=== PATIENT | male | born 1955 | race Caucasian/White ===

== ENCOUNTER 2020-06-04 06:18 | Day surgery (SDC) | payer OTHER ==
[2020-06-03 12:23] LABS: Absolute Lymphocytes (CBC) 2.5 K/uL (0.7-4.9); Basophils % 0.4 % (0-1.3); Hematocrit 48.3 % (39.6-49.0); Lymphocytes % 32.3 % (15.3-44.8); MPV 8.5 fL (7.6-11.3); RBC Red Blood Cell Count 5.25 M/uL (4.33-5.43)
[2020-06-03 12:37] LABS: Protime INR 1.1
--- NOTE | 2020-06-03 12:57 | RAD REPORT ---
EXAM DESCRIPTION: RAD - Chest Pa And Lat (2 Views) - 06/03/2020 12:24 pm CLINICAL HISTORY: pre op Chest pain. COMPARISON: CHEST SINGLE VIEW dated 11/18/2013; CHEST SINGLE VIEW dated 11/11/2009 FINDINGS: The lungs are clear. The heart is normal in size. No displaced fractures. IMPRESSION: No acute or concerning finding suspected.
[2020-06-03 13:22] LABS: Potassium 2.7 mmol/L (3.5-5.1)
[2020-06-03 13:37] LABS: Blood Morphology Comment NOT SEEN (NOT SEEN); Platelet Estimate ADEQ
[2020-06-04] MEDS ORDERED: LIDOCAINE 1% MPF 30 ML VIAL ONE (06:50)
[2020-06-04] MEDS ORDERED: HEPA 1000U/500MLS 1,000 UNIT/500 ML BAG IV ONE (06:50)
[2020-06-04] MEDS ORDERED: NA CHLORIDE 0.9% 500 ML ONE (06:56)
[2020-06-04] MEDS ORDERED: ATROPINE SULF 1 MG/10 ML SYR IV ONE (07:22)
[2020-06-04] MEDS ORDERED: MIDAZOLAM HCL 2 MG/2 ML INJ ONE ×3 (07:22→07:43)
[2020-06-04] MEDS ORDERED: FENTANYL CITR 100 MCG/2 ML ONE (07:22)
[2020-06-04] MEDS ORDERED: NA CHLORIDE 0.9% 0 ML ONE (07:23)
[2020-06-04] MEDS ORDERED: POTASSIUM CL SA 10 MEQ TAB PO ONE (09:00)
[2020-06-04 09:33] VITALS: BP 116/75; TEMP 97.8; O2SAT 96
--- NOTE | 2020-06-04 13:29 | OP ---
Surgeon: Leo Rojo MD Hydrant Setter: Christina Davis. Angiography in the right common femoral artery was normal. Angio-Seal was used to close the case. T he patient will remain at bedrest for 2 hours. He will go home then and follow up in my office in 2 weeks. Indication: Chest pain atypical, positive stress test. Mr. Ryan is a 65-year-old white male. Has a history of DVT, hypertension, dyslipidemia, strong family history of heart disease. He was taking Xarelto that he held for 48 hours for his DVT. He had chest pain, abnormal stress test. In the [facility] today he was an outpatient, prepped and draped in the routine sterile fashion, given Versed and fentanyl for sedation. A 6-Portuguese sheath introduced in the right common femoral artery using the Se rousseauinger technique and 10 cc of Xylocaine. JL4 and JR4 catheters were used to cannulate the left main and right main respectively. He had a 40% first diagonal moderate LAD plaquing. Normal circ, peyton l RCA, left main and ramus. He was codominant. There were no complications. Blood Loss: 5 mL. Postoperative Diagnoses: Mild coronary artery disease. Plan: Plan is for medical therapy. He will resume the Xarelto tomorrow. Anesthesia: Total conscious sedation was 30 minutes. ANSHUL/ECHO Voice ID: [id number] Report ID: [id number]
== END 2020-06-04 09:50 | disposition home or self-care (01) ==
LOC: CCL 06:18
DX: I25.10 Atherosclerotic heart disease of native coronary artery without angina pectoris (principal); I10 Essential (primary) hypertension; E78.2 Mixed hyperlipidemia; I82.403 Acute embolism and thrombosis of unspecified deep veins of lower extremity, bilateral; D68.51 Activated protein C resistance; K21.9 Gastro-esophageal reflux disease without esophagitis; Z79.01 Long term (current) use of anticoagulants; Z20.828 Contact with and (suspected) exposure to other viral communicable diseases; Z88.0 Allergy status to penicillin; Z88.8 Allergy status to other drugs, medicaments and biological substances; Z82.49 Family history of ischemic heart disease and other diseases of the circulatory system
CPT/HCPCS: 85025; 80048; 36415 ×2; 84132; 85610; 85730; 71046; 93454; U0002; C1893; C1760; J2250 ×2; J3010; J7040; J1644; J0583